=== PATIENT | male | born 1930 | race Caucasian/White ===

== ENCOUNTER 2016-10-25 12:42 | Day surgery (SDC) | payer OTHER ==
[~2016-10-25] VITALS: Ht 172.7 cm; Wt 82.1 kg
[~2016-10-25 12:42] MED LIST: ACTOS15 MG PO; ASPIR 8181 M1; ASPIR 8181 M1 PO; ASPIRIN E.C.81 M1 PO; AVODART0.5 MG PO; Aspirin Chewable PO; CADUET PO; CELEBREX200 MG PO; COUMADIN2.5 MG PO; COUMADIN5 MG PO; COZAAR50 MG PO; ENDOCET 5-3251 EACH PO; FINASTERIDE5 MG PO; FLOVENT 11120 INHALA IH; Feosol PO; Flonase BOTH NARES; GABAPENTIN400 MG PO; HYDROCHLOROTH12.5 M3 PO; Hytrin PO; JANUVIA100 MG; JANUVIA100 MG PO; LIPITOR10 MG; LIPITOR10 MG PO; LORTAB 5-325 M1 EACH PO; LOSARTAN POTASS25 MG PO; MONTELUKAST SOD10 MG PO; NEURONTIN100 MG PO; Naprosyn PO; PROSCAR5 MG; PROTONIX40 MG PO; Proventil,Ventolin H IH; SENOKOT S,PE1 TABLET PO; SINGULAIR10 MG PO; STIOLTO RESPIMAT4 GM IH; SYMBICORT60 INHALAT; Symbicort 160-4.5 mc IH; TEMOVATE 0.05%30 GM TP; TERAZOSIN HCL5 MG; TYLENOL WITH C1 EACH; Tylenol/Codeine #3 PO; VENTOLIN HFA18 GM IH; VERAPAMIL HCL120 M2 PO; VERELAN 240 MG240 MG PO
[2016-10-25 13:42] LABS: POINT-OF-CARE METER ID UU13113694
== END 2016-10-25 14:42 | disposition home or self-care (01) ==
LOC: PAIN 12:42 → SDC 15:00 → PAIN 15:00
PROVIDERS: Anesthesiology Pain Medicine
DX: M47.26 Other spondylosis with radiculopathy, lumbar region (principal); M48.06 Spinal stenosis, lumbar region; M17.12 Unilateral primary osteoarthritis, left knee; M75.52 Bursitis of left shoulder; I10 Essential (primary) hypertension; E11.9 Type 2 diabetes mellitus without complications; Z79.82 Long term (current) use of aspirin; Z79.891 Long term (current) use of opiate analgesic; Z87.891 Personal history of nicotine dependence
CPT/HCPCS: 82948; J1030; S0020

== ENCOUNTER 2016-11-01 12:23 | Day surgery (SDC) | payer OTHER ==
[~2016-11-01] VITALS: Ht 172.7 cm; Wt 82.1 kg
[2016-11-01 13:06] LABS: POINT-OF-CARE METER ID UU13113694
== END 2016-11-01 14:54 | disposition home or self-care (01) ==
LOC: PAIN 12:23 → SDC 15:00
PROVIDERS: Anesthesiology Pain Medicine
DX: M47.26 Other spondylosis with radiculopathy, lumbar region (principal); M48.06 Spinal stenosis, lumbar region; I10 Essential (primary) hypertension; J44.9 Chronic obstructive pulmonary disease, unspecified; E11.9 Type 2 diabetes mellitus without complications; Z87.891 Personal history of nicotine dependence; Z79.82 Long term (current) use of aspirin; Z79.891 Long term (current) use of opiate analgesic
CPT/HCPCS: 82948; J1030; S0020

== ENCOUNTER 2017-02-12 08:00 | Day surgery (SDC) | payer OTHER ==
[~2017-02-12] VITALS: Ht 172.7 cm; Wt 82.1 kg
[~2017-02-12 08:00] MED LIST changes: +COZAAR25 MG PO; +NEURONTIN400 MG PO; +PROSCAR5 MG PO; +VERAPAMIL HCL120 M1 PO
[2017-02-12 08:48] LABS: POINT-OF-CARE METER ID UU14174212
== END 2017-02-12 09:35 | disposition home or self-care (01) ==
LOC: PAIN 08:00 → SDC 09:00 → PAIN 09:35
PROVIDERS: Anesthesiology Pain Medicine
PROC: 3E0R33Z Introduction of Anti-inflammatory into Spinal Canal, Percutaneous Approach (ICD-10-PCS; principal; 2017-02-12)
PROC: B01B1ZZ Fluoroscopy of Spinal Cord using Low Osmolar Contrast (ICD-10-PCS; principal; 2017-02-12)
PROC: 3E0R3BZ Introduction of Anesthetic Agent into Spinal Canal, Percutaneous Approach (ICD-10-PCS; principal; 2017-02-12)
DX: M47.26 Other spondylosis with radiculopathy, lumbar region (principal); M48.061 Spinal stenosis, lumbar region without neurogenic claudication; G89.29 Other chronic pain; I10 Essential (primary) hypertension; J44.9 Chronic obstructive pulmonary disease, unspecified; M75.52 Bursitis of left shoulder; E11.9 Type 2 diabetes mellitus without complications; Z86.73 Personal history of transient ischemic attack (TIA), and cerebral infarction without residual deficits; Z87.891 Personal history of nicotine dependence; Z79.82 Long term (current) use of aspirin; Z79.891 Long term (current) use of opiate analgesic
CPT/HCPCS: 82948; J1100

== ENCOUNTER 2017-02-27 13:53 | Emergency (ER) | payer OTHER ==
[~2017-02-27] VITALS: Ht 172.7 cm; Wt 83.0 kg
[2017-02-27] MEDS ORDERED: ROBITUSSIN AC,T10 ML PO (17:53)
[2017-02-27 18:18] VITALS: BP 105/74
== END 2017-02-27 18:29 | disposition home or self-care (01) ==
LOC: EME 13:53
DX: S22.32XA Fracture of one rib, left side, initial encounter for closed fracture (principal); W19.XXXA Unspecified fall, initial encounter; Y93.E9 Activity, other interior property and clothing maintenance; Y92.009 Unspecified place in unspecified non-institutional (private) residence as the place of occurrence of the external cause; E11.9 Type 2 diabetes mellitus without complications; Z79.84 Long term (current) use of oral hypoglycemic drugs; J44.9 Chronic obstructive pulmonary disease, unspecified; Z86.73 Personal history of transient ischemic attack (TIA), and cerebral infarction without residual deficits; Z86.718 Personal history of other venous thrombosis and embolism
CPT/HCPCS: 71110; 99281; 99285

== ENCOUNTER 2017-04-30 07:35 | Day surgery (SDC) | payer OTHER ==
[~2017-04-30] VITALS: Ht 170.2 cm; Wt 81.6 kg
[~2017-04-30 07:35] MED LIST changes: +ROBITUSSIN AC,T10 ML PO
[2017-04-30] MEDS ORDERED: HYDROCHLOROTH12.5 M3 PO (07:57)
== END 2017-04-30 09:43 | disposition home or self-care (01) ==
LOC: PAIN 07:35 → SDC 13:00 → PAIN 13:00
PROVIDERS: Anesthesiology Pain Medicine
PROC: 3E0R33Z Introduction of Anti-inflammatory into Spinal Canal, Percutaneous Approach (ICD-10-PCS; principal; 2017-04-30)
DX: M47.26 Other spondylosis with radiculopathy, lumbar region (principal); M48.061 Spinal stenosis, lumbar region without neurogenic claudication; J44.9 Chronic obstructive pulmonary disease, unspecified; I10 Essential (primary) hypertension; E11.9 Type 2 diabetes mellitus without complications; Z79.82 Long term (current) use of aspirin; Z86.73 Personal history of transient ischemic attack (TIA), and cerebral infarction without residual deficits; Z87.891 Personal history of nicotine dependence; Z79.891 Long term (current) use of opiate analgesic
CPT/HCPCS: 82948; J1100; J2250; J3010